=== PATIENT | female | born 1930 | race Caucasian/White ===

== ENCOUNTER 2019-07-07 11:24 | Inpatient (IN) | payer OTHER ==
[~2019-07-07] VITALS: Ht 154.9 cm; Wt 71.7 kg
[2019-07-07 11:39] VITALS: BP 109/76
[2019-07-07] MEDS ORDERED: HTN MED (11:46)
[2019-07-07] MEDS ORDERED: THYROID MED (11:46)
--- NOTE | 2019-07-07 11:51 | NUR ---
BATTERY TEST ENGINEER TO EVALUATE
[2019-07-07 12:21] LABS: ABSOLUTE BASOPHILS 0.1 thou/uL (0.0-0.2); ABSOLUTE EOSINOPHILS 0.1 thou/uL (0.0-0.7); ABSOLUTE MONOCYTES 0.6 thou/uL (0.0-1.2); BASOPHILS 0.7 %; EOSINOPHILS 0.6 %; HEMATOCRIT 43.4 % (37.0-47.0); HEMOGLOBIN 14.2 gm/dL (12.0-15.0); MCH 30.9 pg (26.0-34.0); MCHC 32.8 g/dL (28.0-37.0); MCV 94.1 fL (80.0-100.0); MONOCYTES 7.2 %; NUCLEATED RBCS 0 /100WBC; PLATELET COUNT* 202 thou/uL (150-400); POLYS 68.5 %; RBC 4.61 mil/uL (4.20-5.00); WBC 8.7 thou/uL (4.0-11.0)
[2019-07-07 12:29] LABS: CALCIUM 8.5 mg/dL (8.5-10.1); CREATININE 1.5 mg/dL (0.6-1.3); POTASSIUM 4.5 mmol/L (3.5-5.1)
[2019-07-07 12:33] LABS: ALBUMIN 3.4 g/dL (3.4-5.0); TOTAL BILIRUBIN 0.4 mg/dL (<0.1-1.0); TOTAL PROTEIN 7.4 g/dL (6.4-8.2)
--- NOTE | 2019-07-07 13:42 | NUR ---
PT'S BEDDING IS CLEAN AND PUREWICK ADMINISTERED.
[2019-07-07 14:33] LABS: URINE BILIRUBIN NEGATIVE (Negative); URINE BLOOD TRACE (Negative); URINE CLARITY CLEAR; URINE COLOR YELLOW; URINE GLUCOSE-RANDOM NEGATIVE (Negative); URINE KETONES NEGATIVE (Negative); URINE LEUKOCYTES-REFLEX NEGATIVE (Negative); URINE NITRITE-REFLEX NEGATIVE (Negative); URINE PROTEIN NEGATIVE (Negative); URINE SPECIFIC GRAVITY <= 1.005 (1.005-1.030); URINE UROBILINOGEN 0.2 E.U./dl (0.2-1.0)
[2019-07-07 16:30] VITALS: BP 120/67
[2019-07-07 16:40] VITALS: BP 160/89
[2019-07-07] MEDS ORDERED: LISINOPRIL40 MG PO (18:32)
[2019-07-07] MEDS ORDERED: LEVOXYL75 MCG PO (18:33)
--- NOTE | 2019-07-07 18:36 | NUR ---
PATIENT ADMITTED TO ROOM 114 FROM ER. ALERT AND ORIENTED X 4. C/O ABD PAIN. SPOKE WITH [facility] TO CLARIFY MED REC. COCCYX EXCORIATION NOTED, PHOTO TAKEN PER PROTOCOL. CLEAR LIQUIDS ORDERED. SPOKE WITH SURGERY, WILL SEE PATIENT. GI CONSULTED WELL. FALL RISK PROTOCOL IN PLACE. ORIENTED TO CALL LIGHT. CALL LIGHT WITHIN REACH, WILL CONTINUE TO MONITOR.
[2019-07-07 20:31] VITALS: BP 123/78
[2019-07-08 04:10] LABS: ABSOLUTE EOSINOPHILS 0.2 thou/uL (0.0-0.7); ABSOLUTE LYMPHOCYTES 2.3 thou/uL (0.8-5.3); ABSOLUTE MONOCYTES 0.7 thou/uL (0.0-1.2); ABSOLUTE NEUTROPHILS 3.4 thou/uL (1.6-8.1); BASOPHILS 0.4 %; EOSINOPHILS 2.3 %; HEMATOCRIT 43.9 % (37.0-47.0); LYMPHOCYTES 35.2 %; MCH 30.3 pg (26.0-34.0); MCHC 31.8 g/dL (28.0-37.0); MCV 95.3 fL (80.0-100.0); MONOCYTES 10.4 %; MPV 9.4 fl. (7.2-11.1); NUCLEATED RBCS 0 /100WBC; PLATELET COUNT* 178 thou/uL (150-400); POLYS 51.7 %; RBC 4.61 mil/uL (4.20-5.00); RDW-CV 15.1 % (10.5-14.5); WBC 6.5 thou/uL (4.0-11.0)
[2019-07-08 04:33] LABS: CALCIUM 8.1 mg/dL (8.5-10.1); CREATININE 1.4 mg/dL (0.6-1.3); MAGNESIUM 1.8 mg/dL (1.8-2.4); POTASSIUM 4.3 mmol/L (3.5-5.1)
--- NOTE | 2019-07-08 06:36 | NUR ---
PATIENT WAS HESITANT TO TAKE ANY PAIN MEDS REPORTING HER PAIN 10/10 AT BEGINNING OF SHIFT. SHE WAS FEELING NAUSEOUS AND ANXIOUS. HER PAIN WAS LOCATED MID ABDOMEN. I EDUCATED HER ON THE SIDE EFFECTS OF MORPHINE AND ZOFRAN AND SHE WAS THEN WILLING TO TAKE SOME MEDICATION FOR HER PAIN AND NAUSEA. I GAVE HER 2MG OF MORPHINE AND 4 MG ZOFRAN. SHE DID NOT HAVE ANY SIDE EFFECTS. SHE WAS UP ALL NIGHT READING AND APPEARED TO HAVE SOME SLIGHT ANXIETY BUT CALM AND COOPERATIVE.
[2019-07-08 08:05] VITALS: BP 150/89
--- NOTE | 2019-07-08 11:37 | NUR ---
INITIAL ASSESSMENT: Pt evaluated for d/c planning needs. Reviewed chart and spoke with nurse and pt. Pt is alert and oriented. Pt lives in 3 level condo with her son Tommy. Pt is independent with ADL's and uses walker for ambulation. Pt has no other DME. Pt plans on returning home on d/c from hospital. WIll remain available to assist as needed.
--- NOTE | 2019-07-08 16:05 | NUR ---
PT A&Ox4, BUT FORGETFUL AT TIMES. VITALS STABLE. NEW IV PLACED IN R AC, PATENT. NPO. UP WITH 1 USING GAIT BELT AND WALKER. WALKED HALLS WITH PT TODAY. PAIN PARTIALLY CONTROLLED WITH TYLENOL. FALL PRECAUTIONS IN PLACE. CALL LIGHT WITHIN REACH. WILL CONTINUE TO MONITOR.
[2019-07-08 21:00] VITALS: BP 115/62
--- NOTE | 2019-07-09 06:57 | NUR ---
PATIENT HAS BEEN AWAKE MOST OF THE NIGHT. VSS ON RA. PATIENT HAS HAD SOME NAUSEA AND VOMITING. HERE IN THE EVENING TO SEE PATIENT. NEW ORDER TO INSERT NG TUBE. NG TUBE INSERTED IN LEFT NARE AND VERIFIED BY X-RAY AND IS TO INTERMITTENT SUCTION.PATIENT REMAINS NPO. PATIENT VERY FUSSY AND AGITATED WITH NG TUBE AND JUST BEING IN THE HOSPITAL AND WANTS TO GO HOME PER PATIENT. PATIENT REFUSING TO HAVE BRIEF CHANGED AND REQUESTING TO HAVE NG TUBE REMOVED AND STATES SHE DOES NOT WANT ANYMORE MEDICATIONS AT ALL. IV IN RIGHT AC-1/2 NS @ 75ML/HR. PATIENT HAS HER OWN HEATING PAD THAT SHE HAS PLACED ON HER ABDOMEN. ASSESSMENT CHARTED. FALL PRECAUTIONS IN PLACE AND HOURLY ROUNDS MADE. WILL CONTINUE WITH PLAN OF CARE AND NURSING TO MONITOR.
[2019-07-09 07:47] VITALS: BP 136/61
[2019-07-09 16:00] VITALS: BP 131/66
--- NOTE | 2019-07-09 16:45 | NUR ---
PT A&Ox4, FORGETFUL AT TIMES. INTERMITTENT ABDOMINAL PAIN, DENIED NEEDING PAIN MEDS. MINIMAL NAUSEA. NO VOMITING. NG TUBE IN PLACE AT LOW INTERMITTENT SUCTION. 750ML OUT OF NG TUBE DURING SHIFT. NPO. PT IS INCONTINENT OF BLADDER AND REFUSES SOME BED CHANGING. UP WITH 1 USING GAITBELT AND WALKER. PT HAS STATED SHE STARTED PASSING GAS MULTIPLE TIMES STARTING ABOUT 1600. FALL PRECAUTIONS IN PLACE. CALL LIGHT WITHIN REACH. WILL CONTINUE TO MONITOR.
[2019-07-09 20:00] VITALS: BP 128/66
[2019-07-10 04:42] LABS: CALCIUM 8.5 mg/dL (8.5-10.1); CREATININE 1.5 mg/dL (0.6-1.3); POTASSIUM 4.4 mmol/L (3.5-5.1)
--- NOTE | 2019-07-10 06:33 | NUR ---
PATIENT SLEPT WELL SECOND HALF OF THIS SHIFT. PT UNCOOPERATIVE AT TIMES WITH TURNS AND CHANGING WET BRIEF; PT INCONTINENT. PT WITH NG SET TO L-I SUCTION; BROWN DRAINAGE NOTED IN CANNISTER. ABDOMEN IS SOFT, LESS DISTENDED. PT WITH FLUIDS/ANTIBIOTICS INFUSING PER DR ORDER IN RT AC. PT DENIES PAIN/NAUSEA. PT REFUSED LOVENOX AT 2100. FREQUENTLY USED ITEMS AND CALL LIGHT WITHIN REACH. SIDERAILS UPX3 AND BED ALARM ON. WILL CONTINUE TO MONITOR.
[2019-07-10 07:40] VITALS: BP 118/67
--- NOTE | 2019-07-10 17:20 | NUR ---
CHECKED IN ON PT. SHE SAID SHE WANTS TO GO HOME. SHE IS REMAINS ON ICE CHIPS EXPLAINED SHE WILL NEED TO BE EATING SOLID FOOD PRIOR TO DISCHARGE AND THEY WILL ADVANCE HER SLOWLY OR SHE WOULD START HAVING PAIN AND VOMITING AGAIN. DISCUSSED THAT SHE IS HOME ALONE DURING THE DAY WHILE SON WORKS. DISCUSSED LIFE ALERT. SHE SAID IT MIGHT BE HANDY IF IT DIDNT COST TOO MUCH. ALSO DISCUSSED CELL PHONE TO CARRY WITH HER ALL THE TIME. SHE SAID SHE DID NOT HAVE ONE. TOLD HER SHE COULD GET AN INEXPENSIVE ONE THAT YOU BUY SO MANY MINUTES ON AT [employer]. SHE SAID SHE WOULD TALK TO HER SON ABOUT THAT. SHE SAID IF SHE FELL WHEN HE WAS AT WORK SHE WOULD NOT WANT TO HAVE TO LAY THERE UNTIL HE CAME HOME.
--- NOTE | 2019-07-10 18:26 | NUR ---
PT A&Ox4 BUT FORGETFUL. VITALS STABLE. MIDLINE PLACED IN L UPPER ARM, PATENT. NPO EXCEPT ICE CHIPS. UP WITH 1 WITH GAITBELT AND WALKER. HAD MULTIPLE WATERY BOWEL MOVEMENTS. FALL PRECAUTIONS IN PLACE. CALL LIGHT WITHIN REACH. WILL CONTINUE TO MONITOR.
[2019-07-10 20:15] VITALS: BP 136/55
--- NOTE | 2019-07-11 05:29 | NUR ---
PT AO, FORGETFUL THIS SHIFT, PLEASANT. AWAKE MUCH OF THE NIGHT, SLEEPING FOR A FEW HOURS AFTER MIDNIGHT. DENIES XIAO ABD PAIN, CO "SORENESS AND TENDERNESS" GENERALIZED ABD. DENIES N/V, TAKING ICE CHIPS WITHOUT DIFFICULTY AND HOPEFUL TO BE ABLE TO ADVANCE DIET TODAY. ABD XRAY TO BE DONE THIS MORNING. ARAM MIDLINE WITH IVF INFUSING PER PUMP, ABX GIVEN ORDERED. MOVES ABOUT IN BED INDEP, REFUSING PURPOSEFUL ASSISTED TURNS WITH WEDGES-EDUCATION GIVEN ABOUT SKIN INTEGRITY. SOME STRESS INCONTINENCE URINE. UP WITH ASSIST, GB, WALKER TO BR TO VOID, PASSING LOTS OF GAS AND 2 SCANT LOOSE STOOLS OVERNIGHT. BOTTOME RED, HEALING EXCORIATED AREAS, TORIBIO CARE GIVEN AND BARRIER CREAM APPLIED. ROOM AIR. VSS. ABLE TO USE CALL LITE AND MAKE NEEDS KNOWN.DNR.
[2019-07-11 07:30] VITALS: BP 144/70
--- NOTE | 2019-07-11 15:33 | CON ---
[address] [address] CONSULTATION Name: MARCELAPHIL J Room: [address] IN M.R.#: [id number] Admission: 07/07/19 Attend Phys: Nasreen Pavon MD Discharge: Date of : [birth year] Report #: [id number] THIS REPORT FOR: //name// CC: Frank Pavon DATE OF SERVICE: 07/08/2019 ATTENDING PHYSICIAN: Dr. Nasreen Pavon. CONSULTING PHYSICIAN: Dr. Heraclio Gross. REASON FOR CONSULTATION: Possible small-bowel obstruction. ASSESSEMENT: Possible small-bowel obstruction versus ileus. PLAN: 1. Thank you for the consultation. We will follow. 2. At the time of my visit, the patient just finished vomiting profusely. Therefore, we will go ahead and place an NG tube for decompression as I do not want the patient to aspirate. Unfortunately, the patient has not had any return of bowel function otherwise, so therefore I would still realize though an NG tube is the most appropriate at this time. 3. We will perform serial evaluations and nonoperative management at this time; however, we will follow closely. HISTORY OF PRESENT ILLNESS: The patient is a very pleasant female who has a history of small-bowel obstruction according to the chart, although she denies that has presented with a history of nausea, vomiting and abdominal pain. The patient has not had a bowel movement for 2 days. According to her, she is also not passing gas. The patient has been noted to be vomiting and just vomited recently right before my admission. She denies any recent illness or fevers or chills. She is not sure of any relieving or exacerbating factors for the pain. The patient is a very poor historian and is unsure of what abdominal procedures she has had. I cannot answer yes or no questions regarding her abdominal procedures. Therefore, her history was obtained from the chart. She does have incisions on her abdomen indicating previous large abdominal surgery. PAST MEDICAL HISTORY: 1. History of small-bowel obstruction. 2. Cerebrovascular accident. 3. Hypothyroidism. 4. Hypertension. 5. Cervical cancer, status post hysterectomy. 6. Colon cancer, status post [place] [address] CONSULTATION Name: PHIL MEDRANO Siddharth Room: [address]#: [id number] Admission: 07/07/19 Attend Phys: Nasreen Pavon MD Discharge: Date of : 05/29/[birth year] Report #: [id number] 7. Abdominal aortic aneurysm. 8. Chronic kidney disease stage 3. PAST SURGICAL HISTORY: 1. Right hemicolectomy. 2. Possible other small bowel resection, per patient. 3. The patient denies having mesh, although she is a poor historian. SOCIAL HISTORY: The patient denies alcohol, tobacco or recreational drug use. FAMILY HISTORY: The patient denies coagulopathy or malignancy. REVIEW OF SYSTEMS: CONSTITUTIONAL: No fever. No chills. HEENT: Denies blurring of vision, double vision, headaches, hearing loss, sinus drainage or sore throat. Denies blurring of vision, double vision, headaches, hearing loss, sinus drainage or sore throat. CARDIOVASCULAR: Denies chest pain, palpitations, orthopnea or paroxysmal nocturnal dyspnea. RESPIRATORY: Denies cough, wheezing, hemoptysis, or shortness of air. GASTROINTESTINAL: Please see above and below. GENITOURINARY: Denies dysuria or hematuria or kidney stones. No urinary frequency, urgency or incontinence. Denies dysuria or hematuria or kidney stones. No urinary frequency, urgency or incontinence. MUSCULOSKELETAL: No joint pain. No muscle pain. NEUROLOGICAL: Denies tremor, stroke or seizure. Denies tremor, stroke or seizure. HEMATOLOGIC / LYMPHATICS: Denies easy bruising, easy bleeding or enlarged lymph nodes. SKIN: No rash or ulceration. ENDOCRINE: No heat or cold intolerance PSYCHIATRIC: Denies depression, anxiety, or schizophrenia. PHYSICAL EXAMINATION: VITAL SIGNS: Temperature 98.3, pulse 107, respiratory rate 16, blood pressure 109/76, pulse ox 96% on room air. GENERAL: No apparent distress, alert and oriented x3. HEENT: PERRLA, EOMI, MMM, NCAT NECK: Supple. No LAD CARDIOVASCULAR: Regular rhythm and rate. Hemodynamically stable. Normal capillary refill. Regular rhythm and rate. Hemodynamically stable. Normal capillary refill. PULMONARY: Nonlabored. Clear to auscultation bilaterally ABDOMEN: Soft, mild tenderness to palpation throughout, no rebound, no guarding, no rigidity. The patient does have previous incisions in her midline. EXTREMITIES: Calves soft, nontender, [place] [address] CONSULTATION Name: PHIL MEDRANO Room: [address] IN ..#: [id number] Admission: 07/07/19 Attend Phys: Nasreen Pavon MD Discharge: Date of : 05/29/[birth year] Report #: [id number] SKIN: No rashes or bruises. PSYCHIATRIC: Normal mood and affect Normal mood and affect NEUROLOGICAL: Grossly intact. CN II-XII grossly intact. MUSCULOSKELETAL: 5/5 strength in upper extremities and lower extremities bilaterally LYMPHATICS: No cervical, inguinal, or supraclavicular lymphadenopathy. LABORATORY DATA: White blood count 8.7, hemoglobin 14.2, hematocrit 43.4, platelets 202. Sodium 138, potassium 4.5, chloride 104, bicarbonate 26, creatinine 1.5, total bilirubin 0.4, AST 18, ALT 19, alkaline phosphatase 67, albumin 3.4, lipase 97. IMAGING: CT abdomen and pelvis impression: 1. Findings most compatible with an ileus, status post right hemicolectomy. A transition zone is not visualized to suggest a bowel obstruction, but continued followup recommended. 2. Sigmoid diverticulosis without diverticulitis. 3. Infrarenal abdominal aortic aneurysm. 4. Trace pericardial effusion. <ELECTRONICALLY SIGNED> By: Heraclio Gross MD 07/11/19 1533 [id number] [id number] Gross MD /nt
--- NOTE | 2019-07-11 16:15 | NUR ---
Pt nurse informed SW that pt/pt family are inquiring about a hospital bed for pt at home. Pt has been sleeping in a recliner. SW followed up with pt and provided resource list of DME companies and suggestions on possibly renting hospital bed. Pt diet advanced to clear liquids today, SW continuing to follow to assist with safe dc planning.
--- NOTE | 2019-07-11 17:31 | NUR ---
PATIENT UP TO CHAIR THIS EVENING. UP WITH SBA AND WALKER TO BATHROOM. PATIENT HAVING MULTIPLE LOOSE BM'S THIS SHIFT. NO COMPLAINTS OF PAIN OR NAUSEA. IVF INFUSING ORDERED. TOLERATING CLEAR LIQUID DIET. PAIENTS DAUGHTER IN LAW INQUIRING ABOUT HOSPITAL BED FOR HOME, CM NOTIFIED AND INFO GIVEN.
[2019-07-11 19:40] VITALS: BP 154/82
--- NOTE | 2019-07-12 05:04 | NUR ---
PT ALERT AND ORIENTED. VSS ON RA. ASSESSMENT DOCUMENTED. MEDS GIVEN PER EMAR. INCONTINENCE BRIEF MONITORING. PT SLEPT OFF AND ON THIS SHIFT. ARAM PICC LINE IN PLACE. CALL LIGHT WITHIN REACH. HOURLY ROUNDINGS MADE. WILL CONTINUE TO MONITOR.
[2019-07-12 05:39] LABS: CALCIUM 8.1 mg/dL (8.5-10.1); CREATININE 1.3 mg/dL (0.6-1.3); POTASSIUM 4.6 mmol/L (3.5-5.1)
[2019-07-12 07:40] VITALS: BP 143/70
[2019-07-12 16:00] VITALS: BP 138/66
--- NOTE | 2019-07-12 16:29 | NUR ---
PATIENT REMAINS ON CLEAR LIQUIDS. PATIENT STATED TO DR. LANDA THAT SHE DID HAVE A BM THIS SHIFT, THIS NURSE DID NOT OBSERVE ANY BM'S TODAY. IVF REMAINS INFUSING. NO COMPLAINTS OF PAIN OR NAUSEA. FULL LIQUID DIET FOR DINNER ORDERED. ABD XRAY TOMORROW. PATIENT AND FAMILY UPDATED ON PLAN OF CARE.
[2019-07-12 20:30] VITALS: BP 184/78
--- NOTE | 2019-07-13 06:48 | NUR ---
PATIENT SLEPT PART OF THE NIGHT. IV FLUIDS AND ANTIBIOTICS WERE GIVEN ORDERED. PATIENT CONTINUES TO MOSTLY URINATE IN HER BRIEF. PATIENT STATES IT JUST COMES OUT OF HER EVERY 15 MINUTES AND SHE WAITS TILL HER BRIEF IS REALLY WET BEFORE SHE WANTS IT CHANGED. WILL CONTINUE TO MONITOR.
[2019-07-13 08:30] VITALS: BP 153/74
--- NOTE | 2019-07-13 14:07 | CON ---
[address] [address] CONSULTATION Name: MARVINLOPEZPHIL J Room: [address] IN .R.#: [id number] Admission: 07/07/19 Attend Phys: Nasreen Pavon MD Discharge: Date of : 05/[birth year] Report #: [id number] THIS REPORT FOR: //name// CC: Frank Pavon DATE OF SERVICE: 07/08/2019 REASON FOR CONSULT: Abdominal pain and distention. This is an 89-year-old female with history of hemicolectomy and cervical cancer. She believes that they removed part of her large and small intestine due to lesions, which were not cancerous. She reports that she has not been mobile much and started having abdominal pain and distention, which prompted her to come to the hospital. Since hospitalization, she had blood work and CT of abdomen and pelvis, which showed evidence of right hemicolectomy and multiple air-fluid levels and intestinal distention without a cutoff point. She currently complains of epigastric pain and reports that she has not passed any gas. She also had one episode of retching and vomiting. PAST MEDICAL HISTORY: Significant for history of CVA, hypothyroidism, cervical cancer, status post hysterectomy, history of colonic resection, status post hemicolectomy, chronic kidney disease, and AAA. ALLERGIES: No known drug allergy. MEDICATIONS: Please refer to MAR. SOCIAL HISTORY: The patient reports that she lives in a duplex where her son lives as well. She denies alcohol or tobacco use. FAMILY HISTORY: Noncontributory. PHYSICAL EXAMINATION: VITAL SIGNS: Reveals blood pressure of 150/89, respirations 17, pulse 103, temperature 98.6. LUNGS: Clear. CARDIOVASCULAR: Regular. ABDOMEN: Soft, tender to palpation in the epigastric region. Bowel sounds are diminished and abdomen is somewhat distended. NEUROLOGIC: The patient is alert, oriented x 3. There [place] [address] CONSULTATION Name: PHIL MEDRANO Siddharth Room: [address] IN [facility]#: [id number] Admission: 07/07/19 Attend Phys: Nasreen Pavon MD Discharge: Date of : 05/29/[birth year] Report #: [id number] LABORATORY DATA: Reveal sodium of 140, potassium 4.3, BUN is 30, creatinine 1.4. Lipase is 97. Glucose 87. Liver function tests, all within normal limits. Calcium is 8.1. Albumin 3.4. WBC 6.5 with hemoglobin of 14 and platelet of 178. IMAGING: As discussed above. ASSESSMENT AND PLAN: The patient with a history of right hemicolectomy, who presents with abdominal pain and distention, CT suggestive of ileus. I will consider putting her on a motility agent, including IV Reglan and erythromycin. If she does not respond to this, we will consider placement of NG tube to intermittent suction. I will do a followup KUB tomorrow. The patient agreeable with plan. <ELECTRONICALLY SIGNED> By: Santos Benjamin MD 07/13/19 1407 1140 [id number] Benjamin MD /nt
[2019-07-13 16:17] VITALS: BP 141/87
--- NOTE | 2019-07-13 18:36 | NUR ---
PATIENT RESTING IN BED. PATIENT DENIES ANY PAIN. PATIENT HAS HAD COMPLAINTS OF EXPLOSIVE LIQUID STOOLS. PATIENT HAS FAIR APPETITE AND TAKES ENSURE SUPPLEMENTS. PATIENT IS UP WITH STANDBY ASSIST WITH WALKER. PATIENT DENIES ANY NEEDS AT THIS TIME. CALL LIGTH WITHIN REACH.
[2019-07-14] VITALS: BP 167/51
--- NOTE | 2019-07-14 06:26 | NUR ---
PATIENT SLEPT MOST OF THE NIGHT. PATIENT REFUSED TO TAKE ANY MEDS THAT SHE WAS NOT TAKING AT HOME EXCEPT FOR SOME NAUSEA MEDICINE. PATIENT IS POSSIBLY GOING HOME TODAY. WILL CONTINUE TO MONITOR.
[2019-07-14 07:55] VITALS: BP 153/77
[2019-07-14] MEDS ORDERED: NORVASC5 MG PO (12:04)
[2019-07-14] MEDS ORDERED: NEXIUM40 MG PO (12:04)
[2019-07-14] MEDS ORDERED: DOK PLUS TABLE1 EACH PO (12:05)
[2019-07-14] MEDS ORDERED: ADULT LOW DOSE81 MG PO (12:05)
[2019-07-14 13:57] VITALS: BP 153/77
[2019-07-14 16:00] VITALS: BP 175/91
--- NOTE | 2019-07-14 16:00 | NUR ---
PT.TO BE DISCHARGED TODAY WITH HOME HEALTH. DISCUSSED WITH HER. SHE HAS NEVER HAD HH BEFORE. SHE WOULD LIKE [facility] THEY CONTRACT WITH HER INSURANCE. SHE SAID HER DAUGHTER IS COMING TO PICK HER UP SOON. SHE IS GLAD TO GO HOME. SPOKE WITH [facility] AND FAXED HER DISCHARGE SUMMARY TO [phone]. PT.IS AWARE THEY WILL CALL HER TO SET UP APPTS.
--- NOTE | 2019-07-14 17:46 | NUR ---
PATIENT DISCHARGED TO HOME WITH HOME HEALTH. DISCHARGE PAPERS REVIEWED AND SIGNED. PRESCRIPTIONS AND INFORMATION SHEETS GIVEN. MIDLINE REMOVED. PATIENT DENIES ANY FURTHER NEEDS. LEFT WITH DAUGHTER IN LAW.
== END 2019-07-14 17:15 | disposition home health service (06) | DRG 389 ==
LOC: M.ERS 11:24 → M.ORTHSURG 15:22 → M.TBA-ER 15:22 → M.ORTHSURG 16:51
PROVIDERS: Nurse Practitioner Family; ADMIT Family Medicine
PROC: 0D9670Z Drainage of Stomach with Drainage Device, Via Natural or Artificial Opening (ICD-10-PCS; 2019-07-07)
PROC: 05HY33Z Insertion of Infusion Device into Upper Vein, Percutaneous Approach (ICD-10-PCS; principal; 2019-07-10)
DX: K56.699 Other intestinal obstruction unspecified as to partial versus complete obstruction (principal); J98.11 Atelectasis; I71.4 Abdominal aortic aneurysm, without rupture; E03.9 Hypothyroidism, unspecified; I12.9 Hypertensive chronic kidney disease with stage 1 through stage 4 chronic kidney disease, or unspecified chronic kidney disease; G89.29 Other chronic pain; M54.5 Low back pain; N18.3 Chronic kidney disease, stage 3 (moderate); F17.210 Nicotine dependence, cigarettes, uncomplicated; Z86.73 Personal history of transient ischemic attack (TIA), and cerebral infarction without residual deficits; Z90.710 Acquired absence of both cervix and uterus; Z85.41 Personal history of malignant neoplasm of cervix uteri; Z90.49 Acquired absence of other specified parts of digestive tract; Z85.038 Personal history of other malignant neoplasm of large intestine; Z79.899 Other long term (current) drug therapy

== ENCOUNTER 2019-12-09 19:52 | Inpatient (IN) | payer OTHER ==
[~2019-12-09] VITALS: Ht 160 cm; Wt 65.8 kg
[~2019-12-09 19:52] MED LIST: ADULT LOW DOSE81 MG PO; DOK PLUS TABLE1 EACH PO; HTN MED; LEVOXYL75 MCG PO; LISINOPRIL40 MG PO; NEXIUM40 MG PO; NORVASC5 MG PO; THYROID MED
[2019-12-09 19:55] VITALS: BP 134/81
[2019-12-09 21:33] LABS: ABSOLUTE BASOPHILS 0.1 thou/uL (0.0-0.2); ABSOLUTE EOSINOPHILS 0.1 thou/uL (0.0-0.7); ABSOLUTE LYMPHOCYTES 2.1 thou/uL (0.8-5.3); ABSOLUTE NEUTROPHILS 8.1 thou/uL (1.6-8.1); BASOPHILS 0.8 %; EOSINOPHILS 0.9 %; HEMATOCRIT 37.2 % (37.0-47.0); HEMOGLOBIN 12.4 gm/dL (12.0-15.0); LYMPHOCYTES 18.6 %; MCH 30.5 pg (26.0-34.0); MCHC 33.4 g/dL (28.0-37.0); MCV 91.3 fL (80.0-100.0); MONOCYTES 8.6 %; MPV 7.9 fl. (7.2-11.1); NUCLEATED RBCS 0 /100WBC; PLATELET COUNT* 274 thou/uL (150-400); POLYS 71.1 %; RBC 4.08 mil/uL (4.20-5.00); WBC 11.4 thou/uL (4.0-11.0)
[2019-12-09 21:44] LABS: CALCIUM 8.2 mg/dL (8.5-10.1); CREATININE 1.6 mg/dL (0.6-1.3); POTASSIUM 4.1 mmol/L (3.5-5.1)
[2019-12-09 21:55] LABS: ALBUMIN 2.4 g/dL (3.4-5.0); TOTAL BILIRUBIN 0.2 mg/dL (<0.1-1.0); TOTAL PROTEIN 7.2 g/dL (6.4-8.2)
[2019-12-09 23:00] VITALS: BP 157/86
[2019-12-10 08:11] VITALS: BP 157/86
[2019-12-10 12:12] VITALS: BP 141/45
[2019-12-10 16:30] VITALS: BP 133/60
--- NOTE | 2019-12-10 16:48 | EKG ---
[place] [address] ELECTROCARDIOGRAM REPORT Name: PHIL MEDRANO Room: [address] IN M.R.#: [id number] Admission: 12/09/19 Attend Phys: Jalen Pineda MD Discharge: Date of : [birth year]/29/[birth year] Report #: [id number] THIS REPORT FOR: //name// [facility] ED Test Date: 2019-12-09 Test Time: 20:05:27 Pat Name: PHIL MEDRANO Department: Room: [facility] Gender: F Application Development Team Lead: [place] : 1930 Requested By: Yuliya Escobedo Order Number: [id number] MD: Valeriy Yang Measurements Intervals [place] Rate: 114 P: 52 ND: 181 QRS: -44 QRSD: 87 T: 87 QT: 340 QTc: 469 Interpretive Statements Sinus tachycardia Left anterior fascicular block Abnormal R-wave progression, late transition LVH with secondary repolarization abnormality No previous ECG available for comparison Electronically Signed On 12-10-2019 16:47:13 [employer] by Valeriy Yang [email or web address] <ELECTRONICALLY SIGNED> By: Valeriy Yang MD, FACC 12/10/19 1647 04 04 Valeriy Yang MD, [facility] /EPI
[2019-12-10 18:51] LABS: URINE BILIRUBIN NEGATIVE (Negative); URINE BLOOD TRACE (Negative); URINE CLARITY CLEAR; URINE COLOR YELLOW; URINE GLUCOSE-RANDOM NEGATIVE (Negative); URINE KETONES NEGATIVE (Negative); URINE LEUKOCYTES-REFLEX NEGATIVE (Negative); URINE NITRITE-REFLEX NEGATIVE (Negative); URINE PROTEIN TRACE (Negative); URINE SPECIFIC GRAVITY 1.025 (1.005-1.030)
[2019-12-10 20:00] VITALS: BP 124/74
[2019-12-11] VITALS: BP 151/58
[2019-12-11 04:59] VITALS: BP 130/43
[2019-12-11 07:00] VITALS: BP 138/81; BP 83/30
[2019-12-11 12:00] VITALS: BP 119/98
[2019-12-11 16:00] VITALS: BP 170/87
[2019-12-11 20:00] VITALS: BP 146/57
[2019-12-12 00:23] VITALS: BP 147/104
[2019-12-12 03:57] VITALS: BP 156/71
[2019-12-12 08:00] VITALS: BP 153/83
[2019-12-12 08:10] LABS: ABSOLUTE BASOPHILS 0.1 thou/uL (0.0-0.2); ABSOLUTE EOSINOPHILS 0.3 thou/uL (0.0-0.7); ABSOLUTE LYMPHOCYTES 1.9 thou/uL (0.8-5.3); ABSOLUTE MONOCYTES 0.6 thou/uL (0.0-1.2); BASOPHILS 0.8 %; EOSINOPHILS 3.2 %; HEMATOCRIT 39.1 % (37.0-47.0); HEMOGLOBIN 13.2 gm/dL (12.0-15.0); LYMPHOCYTES 18.9 %; MCH 30.6 pg (26.0-34.0); MCHC 33.6 g/dL (28.0-37.0); MCV 90.9 fL (80.0-100.0); MONOCYTES 6.5 %; MPV 7.5 fl. (7.2-11.1); NUCLEATED RBCS 0 /100WBC; PLATELET COUNT* 347 thou/uL (150-400); POLYS 70.6 %; RDW-CV 14.9 % (10.5-14.5)
[2019-12-12 08:19] LABS: CALCIUM 8.7 mg/dL (8.5-10.1); CREATININE 1.4 mg/dL (0.6-1.3); POTASSIUM 4.1 mmol/L (3.5-5.1)
[2019-12-12 10:27] VITALS: BP 127/51
[2019-12-12 16:00] VITALS: BP 157/69
[2019-12-13] VITALS: BP 153/99
[2019-12-13 04:00] VITALS: BP 153/53
[2019-12-13 08:00] VITALS: BP 142/65
[2019-12-13 12:59] VITALS: BP 145/76
[2019-12-13 17:00] VITALS: BP 143/76
[2019-12-13 20:00] VITALS: BP 197/83
[2019-12-14 00:58] VITALS: BP 151/59
[2019-12-14 08:00] VITALS: BP 141/84
[2019-12-14 12:00] VITALS: BP 148/80
[2019-12-14] MEDS ORDERED: TYLENOL325 MG PO (13:29)
[2019-12-14] MEDS ORDERED: LEVAQUIN 750 M750 MG PO (13:32)
[2019-12-14 13:55] VITALS: BP 148/80
[2019-12-14 14:39] VITALS: BP 148/80
== END 2019-12-14 17:30 | disposition home health service (06) | DRG 177 ==
LOC: M.ERS 19:52 → M.TBA-ER 22:36 → M.2W 22:36
PROVIDERS: Emergency Medicine; Family Medicine; ADMIT Internal Medicine
DX: J15.6 Pneumonia due to other Gram-negative bacteria (principal); E43 Unspecified severe protein-calorie malnutrition; J96.01 Acute respiratory failure with hypoxia; E03.9 Hypothyroidism, unspecified; I12.9 Hypertensive chronic kidney disease with stage 1 through stage 4 chronic kidney disease, or unspecified chronic kidney disease; N18.3 Chronic kidney disease, stage 3 (moderate); F17.210 Nicotine dependence, cigarettes, uncomplicated; I71.4 Abdominal aortic aneurysm, without rupture; Z79.899 Other long term (current) drug therapy; Z90.49 Acquired absence of other specified parts of digestive tract; Z80.8 Family history of malignant neoplasm of other organs or systems; Z82.49 Family history of ischemic heart disease and other diseases of the circulatory system; Z86.73 Personal history of transient ischemic attack (TIA), and cerebral infarction without residual deficits; Z90.710 Acquired absence of both cervix and uterus; Z68.25 Body mass index [BMI] 25.0-25.9, adult; Z85.41 Personal history of malignant neoplasm of cervix uteri